=== PATIENT | female | born 1935 | race Caucasian/White ===

== ENCOUNTER 2023-02-27 15:34 | Outpatient (CLI) | payer MEDICARE ==
[2023-02-27 16:09] LABS: BASOPHILS # (AUTO) 0.2 X10'3 (0-0.2); BASOPHILS % (AUTO) 1.5 % (0-1); EOSINOPHILS # (AUTO) 0.2 X10'3 (0-0.9); HEMATOCRIT 26.7 % (35.0-45.0); HEMOGLOBIN 7.9 g/dl (12.0-16.0); MEAN CORPUSCULAR HEMOGLOBIN 25.2 PG (27.0-31.0); MEAN CORPUSCULAR HGB CONC 29.7 g/dL (33.0-36.5); MEAN CORPUSCULAR VOLUME 84.7 FL (78-98); MEAN PLATELET VOLUME 7.7 FL (7.4-10.4); MONOCYTES % (AUTO) 9.6 % (2-12); NEUTROPHILS # (AUTO) 6.7 X10'3 (1.8-7.7); NEUTROPHILS % (AUTO) 66.9 % (42-75); PLATELET COUNT 349 X10'3 (140-440); RED BLOOD COUNT 3.15 X10'6 (4.20-5.60)
[2023-02-27 16:21] LABS: ALANINE AMINOTRANSFERASE 20 U/L (12-78); ALBUMIN 3.3 G/DL (3.4-5.0); ALBUMIN/GLOBULIN RATIO 0.8 (1.1-1.5); ALKALINE PHOSPHATASE 84 IU/L (46-116); ANION GAP 8 (8-16); ASPARTATE AMINO TRANSFERASE 15 U/L (10-37); BILIRUBIN,TOTAL 0.3 MG/DL (0.1-1.0); BLOOD UREA NITROGEN 29 MG/DL (7-18); BUN/CREATININE RATIO 29.9 (10.0-20.0); CALCIUM 8.7 MG/DL (8.5-10.1); CHLORIDE 104 MMOL/L (99-107); CREATININE 0.97 MG/DL (0.40-0.90); GLUCOSE 109 MG/DL (70-104); POTASSIUM 4.8 MMOL/L (3.5-5.1); SODIUM 143 MMOL/L (135-145); TOTAL CARBON DIOXIDE 31.1 MMOL/L (24-32); TOTAL PROTEIN 7.3 G/DL (6.4-8.2); eGFR 54 ML/MIN
[2023-02-27] MEDS ORDERED: iohexol 350MG/ML 100ml bottle IV ONE (16:25)
[2023-02-27 16:28] LABS: PRO BRAIN NATRIURETIC PEPTIDE 1021 PG/ML (0-450)
== END 2023-02-27 23:59 | disposition home or self-care (01) ==
LOC: RAD 15:34
PROVIDERS: ATTEND Internal Medicine Critical Care Medicine
DX: R06.02 Shortness of breath (principal); R09.02 Hypoxemia
CPT/HCPCS: 36415; 71275; 80053; 83880; 84484; 85025; J3490; Q9967

== ENCOUNTER 2023-03-06 11:04 | Outpatient (CLI) | payer MEDICARE ==
[2023-03-06 11:56] LABS: BASOPHILS # (AUTO) 0.1 X10'3 (0-0.2); EOSINOPHILS # (AUTO) 0.1 X10'3 (0-0.9); EOSINOPHILS % (AUTO) 1.5 % (0-6); LYMPHOCYTES # (AUTO) 1.9 X10'3 (1.1-4.8); LYMPHOCYTES % (AUTO) 20.7 % (21-51); MEAN PLATELET VOLUME 7.7 FL (7.4-10.4); MONOCYTES # (AUTO) 0.6 X10'3 (0-0.9); MONOCYTES % (AUTO) 7.2 % (2-12); NEUTROPHILS # (AUTO) 6.3 X10'3 (1.8-7.7); NEUTROPHILS % (AUTO) 69.6 % (42-75); PLATELET COUNT 452 X10'3 (140-440)
[2023-03-06 12:15] LABS: ALANINE AMINOTRANSFERASE 20 U/L (12-78); ALBUMIN 3.4 G/DL (3.4-5.0); ALBUMIN/GLOBULIN RATIO 0.8 (1.1-1.5); ALKALINE PHOSPHATASE 88 IU/L (46-116); ANION GAP 9 (8-16); ASPARTATE AMINO TRANSFERASE 14 U/L (10-37); BILIRUBIN,TOTAL 0.3 MG/DL (0.1-1.0); BLOOD UREA NITROGEN 21 MG/DL (7-18); BUN/CREATININE RATIO 22.3 (10.0-20.0); CALCIUM 9.4 MG/DL (8.5-10.1); CHLORIDE 99 MMOL/L (99-107); CREATININE 0.94 MG/DL (0.40-0.90); FREE T4 (FREE THYROXINE) 1.02 NG/DL (0.73-1.40); GLUCOSE 118 MG/DL (70-104); SODIUM 139 MMOL/L (135-145); THYROID STIMULATING HORMONE 3.06 ulU/ml (0.34-4.50); TOTAL CARBON DIOXIDE 31.3 MMOL/L (24-32); TOTAL PROTEIN 7.6 G/DL (6.4-8.2); eGFR 56 ML/MIN
[2023-03-06 12:52] LABS: HEMATOCRIT 25.9 % (35.0-45.0); HEMOGLOBIN 8.2 g/dl (12.0-16.0); MEAN CORPUSCULAR HGB CONC 31.5 g/dL (33.0-36.5); MEAN CORPUSCULAR VOLUME 79.2 FL (78-98); RED BLOOD COUNT 3.28 X10'6 (4.20-5.60); RED CELL DISTRIBUTION WIDTH 18.1 % (11.5-14.5)
[2023-03-06 13:51] LABS: ANISOCYTOSIS 2+; PLATELET ESTIMATE INCREASED; POIKILOCYTOSIS FEW; POLYCHROMASIA FEW; STOMATOCYTES 2+
[2023-03-08 10:57] LABS: OCCULT BLOOD STOOL NEGATIVE (Neg)
== END 2023-03-06 23:59 | disposition home or self-care (01) ==
LOC: LAB 11:04
PROVIDERS: ATTEND Family Medicine
DX: I12.9 Hypertensive chronic kidney disease with stage 1 through stage 4 chronic kidney disease, or unspecified chronic kidney disease (principal); N18.9 Chronic kidney disease, unspecified; D64.9 Anemia, unspecified; R53.83 Other fatigue
CPT/HCPCS: 36415; 80053; 82272; 82607; 84439; 84443; 85008; 85025; 86885; 86900; 86901; 86920

== ENCOUNTER 2023-03-15 14:37 | Inpatient (IN) | payer MEDICARE ==
[~2023-03-15] VITALS: Ht 157.5 cm; Wt 90.9 kg
[2023-03-15] VITALS (7 sets, daily range): BP systolic 112–133; BP diastolic 42–95; PULSE 80–88; RESP 13–23; TEMP 98.1–98.7; O2SAT 95
[2023-03-15 15:19] LABS: BASOPHILS % (AUTO) 0.4 % (0-1); EOSINOPHILS % (AUTO) 0 % (0-6); HEMATOCRIT 23.5 % (35.0-45.0); LYMPHOCYTES # (AUTO) 1.3 X10'3 (1.1-4.8); LYMPHOCYTES % (AUTO) 15.2 % (21-51); MEAN CORPUSCULAR HEMOGLOBIN 23.8 PG (27.0-31.0); MEAN CORPUSCULAR HGB CONC 29.4 g/dL (33.0-36.5); MEAN PLATELET VOLUME 7.6 FL (7.4-10.4); MONOCYTES # (AUTO) 0.3 X10'3 (0-0.9); MONOCYTES % (AUTO) 3.1 % (2-12); NEUTROPHILS # (AUTO) 6.9 X10'3 (1.8-7.7); NEUTROPHILS % (AUTO) 81.3 % (42-75); PLATELET COUNT 441 X10'3 (140-440); RED CELL DISTRIBUTION WIDTH 19.3 % (11.5-14.5); WHITE BLOOD COUNT 8.5 X10'3 (4.5-11.0)
[2023-03-15 15:25] LABS: HEMOGLOBIN 6.9 g/dl (12.0-16.0)
[2023-03-15 15:35] LABS: ALANINE AMINOTRANSFERASE 17 U/L (12-78); ALBUMIN 3.4 G/DL (3.4-5.0); ALBUMIN/GLOBULIN RATIO 0.9 (1.1-1.5); ALKALINE PHOSPHATASE 88 IU/L (46-116); ANION GAP 6 (8-16); ASPARTATE AMINO TRANSFERASE 11 U/L (10-37); BILIRUBIN,TOTAL 0.2 MG/DL (0.1-1.0); BLOOD UREA NITROGEN 26 MG/DL (7-18); CALCIUM 8.7 MG/DL (8.5-10.1); CHLORIDE 103 MMOL/L (99-107); CREATININE 1.18 MG/DL (0.40-0.90); GLUCOSE 179 MG/DL (70-104); POTASSIUM 4.6 MMOL/L (3.5-5.1); SODIUM 140 MMOL/L (135-145); TOTAL CARBON DIOXIDE 31.2 MMOL/L (24-32); TOTAL PROTEIN 7.1 G/DL (6.4-8.2); eGFR 43 ML/MIN
[2023-03-15 15:43] LABS: PRO BRAIN NATRIURETIC PEPTIDE 1994 PG/ML (0-450)
[2023-03-15] MEDS: ipratropium 0.5 MG/2.5ML nebule IH ONE (15:50)
[2023-03-15] MEDS: normal saline 1000ml 1,000 ML IV SCH ×2 (15:50→18:20)
[2023-03-15] MEDS: acetaminophen 325mg tablet PO ONE (16:00)
[2023-03-15 16:24] LABS: RED BLOOD COUNT 2.97 X10'6 (4.20-5.60); RETICULOCYTE % (AUTO) 3.3 % (0.5-1.5)
[2023-03-15 16:43] LABS: APTT 24 SECONDS (22-32); FIBRINOGEN 405 MG/DL (177-424); PROTHROMBIN TIME 10.4 SECONDS (9.0-12.0)
[2023-03-15 16:51] LABS: FERRITIN 9 NG/ML (8-252)
[2023-03-15 17:03] LABS: % IRON SATURATION 4 % (11-46); IRON 16 UG/DL (49-151); TOTAL IRON BINDING CAPACITY 449 UG/DL (259-388)
[2023-03-15] MEDS ORDERED: mag hydrox/Alum hydrox/simeth 30ml oral suspension PO PRN (17:25)
[2023-03-15] MEDS ORDERED: acetaminophen 650mg rectal suppository RC PRN (17:25)
[2023-03-15] MEDS ORDERED: bisacodyl 10mg suppository rectal RC PRN (17:25)
[2023-03-15] MEDS ORDERED: acetaminophen 325mg tablet PO PRN ×2 (17:25)
[2023-03-15] MEDS ORDERED: ondansetron 4mg rapidly disintigrating tab PO PRN (17:25)
[2023-03-15] MEDS ORDERED: diphenhydrAMINE 25mg capsule PO PRN (17:25)
[2023-03-15] MEDS ORDERED: diphenhydrAMINE 50 mg/ml inj IV PRN (17:25)
[2023-03-15] MEDS ORDERED: morphine 2 MG/ML inj. syringe IV PRN (17:25)
[2023-03-15] MEDS ORDERED: HYDROcodone/acetaminophen 5mg/325mg tablet PO PRN (17:25)
[2023-03-15] MEDS ORDERED: magnesium hydroxide 30ml (MOM) UD suspension PO PRN (17:25)
[2023-03-15] MEDS ORDERED: ondansetron/PF 4mg/2ml inj IV PRN (17:25)
[2023-03-15 17:44] LABS: NUCLEATED RED BLOOD CELLS 2 /100WBC (0-0); TOTAL CELLS COUNTED 100
[2023-03-15 17:45] LABS: ANISOCYTOSIS 2+; HYPOCHROMASIA 2+; PLATELET ESTIMATE INCREASED; POIKILOCYTOSIS 2+; POLYCHROMASIA FEW; STOMATOCYTES 2+
[2023-03-15] MEDS: albuterol 2.5 MG/3 ML nebule NEB ONE (17:47)
[2023-03-15] MEDS: pantoprazole 40 MG vial IV ONE (18:20)
[2023-03-15] MEDS: diphenhydrAMINE 25mg capsule PO ONE (18:20)
[2023-03-15 19:09] LABS: BILIRUBIN,URINE NEGATIVE (Neg); CLARITY,URINE SLIGHTLY CLOUDY (Clear); COLOR,URINE YELLOW (Yellow); GLUCOSE, URINE NEGATIVE (Neg); KETONES,URINE NEGATIVE (Neg); LEUKOCYTE ESTERASE ,URINE NEGATIVE (Neg); NITRITES, URINE NEGATIVE (Neg); OCCULT BLOOD,URINE NEGATIVE (Neg); PROTEIN,URINE NEGATIVE (Neg); UROBILINOGEN,URINE 0.2 E.U/dL (0.2-1.0)
[2023-03-15 19:10] LABS: UA COLLECTION TYPE CLN CATCH MIDSTREAM
[2023-03-15 19:22] LABS: BACTERIA,URINE 4+ /HPF (Neg); MUCUS STRANDS NONE SEEN /LPF (Neg); RBC,URINE NONE SEEN /HPF (0-2); SQUAMOUS EPITHELIAL CELL,UR FEW /LPF (FEW)
[2023-03-15 19:53] LABS: HEMOGLOBIN A1C 5.6 % (4.5-6.2)
[2023-03-15] MEDS: docusate sod 100mg capsule PO SCH (20:00)
[2023-03-15 20:11] LABS: MAGNESIUM 2.5 MG/DL (1.5-2.4); PHOSPHORUS 3.8 MG/DL (2.3-4.5)
[2023-03-15] MEDS ORDERED: VERA120T86 (21:25)
[2023-03-15] MEDS ORDERED: FURO20TA4 PO (21:25)
[2023-03-15] MEDS ORDERED: IRBE150T34 PO (21:25)
[2023-03-15] MEDS ORDERED: POTA-366 PO (21:25)
[2023-03-15] MEDS ORDERED: ROPI3TAB21 PO (21:25)
[2023-03-15] MEDS ORDERED: DORZ10DR10 EACHEYE (21:25)
[2023-03-15] MEDS ORDERED: TIMO5DRO15 EACHEYE (21:25)
[2023-03-15] MEDS ORDERED: NETA2.5D3 (21:28)
[2023-03-15 23:00] LABS: HEMATOCRIT 25.5 % (35.0-45.0); HEMOGLOBIN 7.7 g/dl (12.0-16.0); MEAN CORPUSCULAR HEMOGLOBIN 24.5 PG (27.0-31.0); MEAN CORPUSCULAR HGB CONC 30.1 g/dL (33.0-36.5); MEAN CORPUSCULAR VOLUME 81.4 FL (78-98); MEAN PLATELET VOLUME 8.1 FL (7.4-10.4); PLATELET COUNT 404 X10'3 (140-440); RED BLOOD COUNT 3.13 X10'6 (4.20-5.60); RED CELL DISTRIBUTION WIDTH 18.5 % (11.5-14.5); WHITE BLOOD COUNT 10.1 X10'3 (4.5-11.0)
[2023-03-16] VITALS (13 sets, daily range): BP systolic 131–166; BP diastolic 52–82; PULSE 77–89; RESP 13–27; TEMP 97.2–98.2; O2SAT 94–98
[2023-03-16] MEDS: temazepam 15mg capsule PO PRN (03:54)
[2023-03-16 04:50] LABS: ALANINE AMINOTRANSFERASE 18 U/L (12-78); ALBUMIN 3.1 G/DL (3.4-5.0); ALBUMIN/GLOBULIN RATIO 0.9 (1.1-1.5); ALKALINE PHOSPHATASE 75 IU/L (46-116); ANION GAP 6 (8-16); ASPARTATE AMINO TRANSFERASE 14 U/L (10-37); BILIRUBIN,TOTAL 0.2 MG/DL (0.1-1.0); BLOOD UREA NITROGEN 20 MG/DL (7-18); BUN/CREATININE RATIO 20.4 (10.0-20.0); CALCIUM 8.5 MG/DL (8.5-10.1); CHLORIDE 107 MMOL/L (99-107); CHOL/HDL RATIO 3.1 (0.00-4.99); CHOLESTEROL 129 MG/DL (0-200); CREATININE 0.98 MG/DL (0.40-0.90); GLUCOSE 98 MG/DL (70-104); HDL CHOLESTEROL 42 MG/DL (35-60); LDL CHOLESTEROL 67 MG/DL (50-100); SODIUM 144 MMOL/L (135-145); TOTAL CARBON DIOXIDE 30.7 MMOL/L (24-32); TOTAL PROTEIN 6.6 G/DL (6.4-8.2); TRIGLYCERIDES 101 MG/DL (20-135); eCRCL 33 ML/MIN; eGFR 54 ML/MIN
[2023-03-16 04:56] LABS: BASOPHILS # (AUTO) 0.1 X10'3 (0-0.2); EOSINOPHILS # (AUTO) 0.1 X10'3 (0-0.9); EOSINOPHILS % (AUTO) 0.5 % (0-6); HEMATOCRIT 24.5 % (35.0-45.0); HEMOGLOBIN 7.4 g/dl (12.0-16.0); LYMPHOCYTES # (AUTO) 2.7 X10'3 (1.1-4.8); LYMPHOCYTES % (AUTO) 23.5 % (21-51); MEAN CORPUSCULAR HEMOGLOBIN 24.3 PG (27.0-31.0); MEAN CORPUSCULAR VOLUME 80.8 FL (78-98); MEAN PLATELET VOLUME 7.9 FL (7.4-10.4); MONOCYTES # (AUTO) 0.9 X10'3 (0-0.9); MONOCYTES % (AUTO) 7.9 % (2-12); NEUTROPHILS # (AUTO) 7.7 X10'3 (1.8-7.7); NEUTROPHILS % (AUTO) 67.1 % (42-75); PLATELET COUNT 398 X10'3 (140-440); RED BLOOD COUNT 3.04 X10'6 (4.20-5.60); RED CELL DISTRIBUTION WIDTH 18.4 % (11.5-14.5); WHITE BLOOD COUNT 11.4 X10'3 (4.5-11.0)
[2023-03-16 07:00] LABS: ANISOCYTOSIS 2+; MICROCYTOSIS 1+; PLATELET ESTIMATE NORMAL; POIKILOCYTOSIS FEW; POLYCHROMASIA FEW
[2023-03-16] MEDS: CefTRIAXone/D5W-Rocephin 1gm 50 ML IV SCH (08:31)
[2023-03-16 11:34] LABS: OCCULT BLOOD STOOL POSITIVE (Neg)
[2023-03-16] MEDS: azithromycin/NS 500mg/250ml 250 ML IV SCH (12:06)
[2023-03-16] MEDS: ipratropium/albuterol 3ml nebule NEB PRN (15:49)
[2023-03-17] VITALS (13 sets, daily range): BP systolic 127–153; BP diastolic 56–107; PULSE 80–89; RESP 13–23; TEMP 97.3–98.2; O2SAT 94–96
[2023-03-17 06:55] LABS: BASOPHILS # (AUTO) 0.1 X10'3 (0-0.2); BASOPHILS % (AUTO) 1.1 % (0-1); EOSINOPHILS # (AUTO) 0.3 X10'3 (0-0.9); EOSINOPHILS % (AUTO) 2.7 % (0-6); HEMATOCRIT 28.3 % (35.0-45.0); HEMOGLOBIN 8.5 g/dl (12.0-16.0); LYMPHOCYTES # (AUTO) 1.5 X10'3 (1.1-4.8); LYMPHOCYTES % (AUTO) 13.3 % (21-51); MEAN CORPUSCULAR HEMOGLOBIN 24.7 PG (27.0-31.0); MEAN CORPUSCULAR HGB CONC 29.9 g/dL (33.0-36.5); MEAN CORPUSCULAR VOLUME 82.4 FL (78-98); MEAN PLATELET VOLUME 7.7 FL (7.4-10.4); MONOCYTES % (AUTO) 8.7 % (2-12); NEUTROPHILS # (AUTO) 8.6 X10'3 (1.8-7.7); NEUTROPHILS % (AUTO) 74.2 % (42-75); PLATELET COUNT 376 X10'3 (140-440); RED BLOOD COUNT 3.43 X10'6 (4.20-5.60); RED CELL DISTRIBUTION WIDTH 18.3 % (11.5-14.5); WHITE BLOOD COUNT 11.6 X10'3 (4.5-11.0)
[2023-03-17 07:21] LABS: ALANINE AMINOTRANSFERASE 17 U/L (12-78); ALBUMIN 2.8 G/DL (3.4-5.0); ALBUMIN/GLOBULIN RATIO 0.8 (1.1-1.5); ALKALINE PHOSPHATASE 74 IU/L (46-116); ANION GAP 5 (8-16); ASPARTATE AMINO TRANSFERASE 16 U/L (10-37); BILIRUBIN,TOTAL 0.4 MG/DL (0.1-1.0); BLOOD UREA NITROGEN 11 MG/DL (7-18); BUN/CREATININE RATIO 14.3 (10.0-20.0); CALCIUM 8.3 MG/DL (8.5-10.1); CHLORIDE 107 MMOL/L (99-107); CREATININE 0.77 MG/DL (0.40-0.90); GLUCOSE 93 MG/DL (70-104); SODIUM 144 MMOL/L (135-145); TOTAL CARBON DIOXIDE 31.6 MMOL/L (24-32); TOTAL PROTEIN 6.5 G/DL (6.4-8.2); eCRCL 41 ML/MIN; eGFR 71 ML/MIN
[2023-03-17] MEDS ORDERED: fentaNYL/PF 50MCG/1 ML 2ML syringe ONE (10:56)
[2023-03-17] MEDS ORDERED: MIDAZolam 1 MG/ML 5ML VIAL ONE (10:56)
[2023-03-17] MEDS ORDERED: LIDOcaine Viscous 15ml cup ONE (10:57)
[2023-03-18 00:01] VITALS: PULSE 76; RESP 18; O2SAT 93
[2023-03-18 06:00] VITALS: BP 136/81; PULSE 72; RESP 18; TEMP 98.6; O2SAT 94
[2023-03-18 07:58] LABS: BASOPHILS # (AUTO) 0.1 X10'3 (0-0.2); BASOPHILS % (AUTO) 0.6 % (0-1); EOSINOPHILS # (AUTO) 0.2 X10'3 (0-0.9); EOSINOPHILS % (AUTO) 1.9 % (0-6); HEMATOCRIT 28.2 % (35.0-45.0); HEMOGLOBIN 8.4 g/dl (12.0-16.0); LYMPHOCYTES # (AUTO) 1.8 X10'3 (1.1-4.8); LYMPHOCYTES % (AUTO) 14.4 % (21-51); MEAN CORPUSCULAR HEMOGLOBIN 24.4 PG (27.0-31.0); MEAN CORPUSCULAR HGB CONC 29.7 g/dL (33.0-36.5); MEAN CORPUSCULAR VOLUME 82.2 FL (78-98); MEAN PLATELET VOLUME 7.6 FL (7.4-10.4); MONOCYTES # (AUTO) 1.2 X10'3 (0-0.9); MONOCYTES % (AUTO) 9.7 % (2-12); NEUTROPHILS % (AUTO) 73.4 % (42-75); PLATELET COUNT 347 X10'3 (140-440); RED BLOOD COUNT 3.43 X10'6 (4.20-5.60); RED CELL DISTRIBUTION WIDTH 18.7 % (11.5-14.5); WHITE BLOOD COUNT 12.2 X10'3 (4.5-11.0)
[2023-03-18 08:36] LABS: ALANINE AMINOTRANSFERASE 18 U/L (12-78); ALBUMIN/GLOBULIN RATIO 0.8 (1.1-1.5); ALKALINE PHOSPHATASE 78 IU/L (46-116); ANION GAP 7 (8-16); ASPARTATE AMINO TRANSFERASE 12 U/L (10-37); BILIRUBIN,TOTAL 0.4 MG/DL (0.1-1.0); BLOOD UREA NITROGEN 7 MG/DL (7-18); CALCIUM 8.5 MG/DL (8.5-10.1); CHLORIDE 106 MMOL/L (99-107); CREATININE 0.78 MG/DL (0.40-0.90); GLUCOSE 102 MG/DL (70-104); POTASSIUM 3.6 MMOL/L (3.5-5.1); SODIUM 142 MMOL/L (135-145); TOTAL PROTEIN 6.6 G/DL (6.4-8.2); eCRCL 41 ML/MIN; eGFR 70 ML/MIN
[2023-03-18 08:38] VITALS: PULSE 84; RESP 18; O2SAT 95
[2023-03-18 11:00] VITALS: BP 141/66; PULSE 78; RESP 18; TEMP 97.9; O2SAT 95
[2023-03-18] MEDS ORDERED: DEXL30CA4 PO (13:37)
[2023-03-18] MEDS ORDERED: LEVO-65 PO (13:37)
[2023-03-19 13:37] LABS: TRANSFERRIN 407 mg/dL (149-313)
== END 2023-03-18 14:00 | disposition home or self-care (01) | DRG 377 ==
LOC: ER 14:38 → ED HOLD 17:31 → EDBEDREQ 03-16 00:27 → PCU 3S 03-16 08:57
PROVIDERS: ADMIT Family Medicine; ATTEND Family Medicine
PROC: 30233N1 Transfusion of Nonautologous Red Blood Cells into Peripheral Vein, Percutaneous Approach (ICD-10-PCS; 2023-03-15)
PROC: 0DJ08ZZ Inspection of Upper Intestinal Tract, Via Natural or Artificial Opening Endoscopic (ICD-10-PCS; principal; 2023-03-17)
DX: K29.91 Gastroduodenitis, unspecified, with bleeding (principal); I50.33 Acute on chronic diastolic (congestive) heart failure; J96.21 Acute and chronic respiratory failure with hypoxia; J15.8 Pneumonia due to other specified bacteria; N39.0 Urinary tract infection, site not specified; N17.9 Acute kidney failure, unspecified; I13.0 Hypertensive heart and chronic kidney disease with heart failure and stage 1 through stage 4 chronic kidney disease, or unspecified chronic kidney disease; J44.0 Chronic obstructive pulmonary disease with (acute) lower respiratory infection; K22.11 Ulcer of esophagus with bleeding; D64.9 Anemia, unspecified; N18.9 Chronic kidney disease, unspecified; E66.9 Obesity, unspecified; Z68.36 Body mass index [BMI] 36.0-36.9, adult; E86.1 Hypovolemia; Z99.81 Dependence on supplemental oxygen; Z87.891 Personal history of nicotine dependence
CPT/HCPCS: 36415; 36430; 43235; 71045; 71046; 71250; 74176; 80053; 80061; 81001; 82272; 82607; 82728; 83036; 83540; 83550; 83605; 83735; 83880; 84100; 84466; 84484; 85007; 85008; 85025; 85027; 85045; 85384; 85610; 85730; 86885; 86900; 86901; 86920; 87040; 87077; 87081; 87088; 87186; 93005; 93306; 94640; 94760; 99152; 99285; A4620; C9113; G0378; J0456; J0696; J2250; J3010; J7030; J7040; J7050; P9016; Q0163

== ENCOUNTER 2023-09-11 09:55 | Emergency (ER) | payer MEDICARE ==
[~2023-09-11] VITALS: Ht 157.5 cm; Wt 82.2 kg
[~2023-09-11 09:55] MED LIST: DEXL30CA9 PO; DORZ10DR10 EACHEYE; IRBE150T34 PO; NETA2.5D3; ROPI3TAB21 PO; TIMO5DRO15 EACHEYE
[2023-09-11 10:50] LABS: BASOPHILS # (AUTO) 0.1 X10'3 (0-0.2); BASOPHILS % (AUTO) 1.2 % (0-1); EOSINOPHILS # (AUTO) 0.3 X10'3 (0-0.9); EOSINOPHILS % (AUTO) 2.8 % (0-6); LYMPHOCYTES # (AUTO) 1.5 X10'3 (1.1-4.8); MEAN PLATELET VOLUME 8.1 FL (7.4-10.4); MONOCYTES # (AUTO) 0.7 X10'3 (0-0.9); MONOCYTES % (AUTO) 7.7 % (2-12); NEUTROPHILS % (AUTO) 72.3 % (42-75); PLATELET COUNT 444 X10'3 (140-440); RED BLOOD COUNT 2.45 X10'6 (4.20-5.60); RED CELL DISTRIBUTION WIDTH 21.3 % (11.5-14.5); WHITE BLOOD COUNT 9.7 X10'3 (4.5-11.0)
[2023-09-11 10:58] LABS: APTT 24 SECONDS (22-32); PROTHROMBIN TIME 10.9 SECONDS (9.0-12.0)
[2023-09-11 11:00] LABS: ALANINE AMINOTRANSFERASE 17 U/L (12-78); ALBUMIN 3.2 G/DL (3.4-5.0); ALBUMIN/GLOBULIN RATIO 0.8 (1.1-1.5); ALKALINE PHOSPHATASE 99 IU/L (46-116); AMYLASE 52 U/L (25-115); ANION GAP 9 (8-16); ASPARTATE AMINO TRANSFERASE 14 U/L (10-37); BILIRUBIN,TOTAL 0.3 MG/DL (0.1-1.0); BLOOD UREA NITROGEN 18 MG/DL (7-18); BUN/CREATININE RATIO 19.4 (10.0-20.0); CALCIUM 8.9 MG/DL (8.5-10.1); CHLORIDE 106 MMOL/L (99-107); CREATININE 0.93 MG/DL (0.40-0.90); GLUCOSE 112 MG/DL (70-104); LIPASE 69 U/L (16-77); POTASSIUM 4.1 MMOL/L (3.5-5.1); SODIUM 141 MMOL/L (135-145); TOTAL CARBON DIOXIDE 26.1 MMOL/L (24-32); TOTAL PROTEIN 7.1 G/DL (6.4-8.2); eCRCL 34 ML/MIN; eGFR 57 ML/MIN
[2023-09-11 11:13] LABS: HEMOGLOBIN 6.6 g/dl (12.0-16.0)
[2023-09-11 11:14] LABS: HEMATOCRIT 21.8 % (35.0-45.0); MEAN CORPUSCULAR HEMOGLOBIN 26.7 PG (27.0-31.0); MEAN CORPUSCULAR HGB CONC 30.3 g/dL (33.0-36.5); MEAN CORPUSCULAR VOLUME 88.2 FL (78-98)
[2023-09-11 12:16] VITALS: BP 145/69; PULSE 78; RESP 18; TEMP 98.4
[2023-09-11 12:16] LABS: BILIRUBIN,URINE NEGATIVE (Neg); CLARITY,URINE CLEAR (Clear); COLOR,URINE YELLOW (Yellow); GLUCOSE, URINE NEGATIVE (Neg); KETONES,URINE NEGATIVE (Neg); LEUKOCYTE ESTERASE ,URINE TRACE (Neg); NITRITES, URINE NEGATIVE (Neg); OCCULT BLOOD,URINE NEGATIVE (Neg); PROTEIN,URINE NEGATIVE (Neg); UROBILINOGEN,URINE 0.2 E.U/dL (0.2-1.0)
[2023-09-11 12:27] LABS: UA COLLECTION TYPE NON-SPECIFIED
[2023-09-11 12:28] LABS: BACTERIA,URINE 2+ /HPF (Neg); HYALINE CASTS 0-3 /LPF (NEGATIVE); MUCUS STRANDS FEW /LPF (Neg); RBC,URINE 0-2 /HPF (0-2); SQUAMOUS EPITHELIAL CELL,UR MODERATE /LPF (FEW); WBC,URINE 0-4 /HPF (0-4)
[2023-09-11 12:34] VITALS: BP 112/67; PULSE 85; RESP 17; TEMP 98.4
[2023-09-11] MEDS ORDERED: CEPH-585 PO (12:43)
[2023-09-11] MEDS: cephalexin 250mg capsule PO ONE (12:59)
[2023-09-11 13:12] VITALS: O2SAT 95
[2023-09-11 13:34] VITALS: BP 132/104; PULSE 81; RESP 16; TEMP 98.4
== END 2023-09-11 14:09 | disposition home or self-care (01) ==
LOC: ER 09:56
DX: D64.9 Anemia, unspecified (principal); N39.0 Urinary tract infection, site not specified; R06.02 Shortness of breath; Z79.2 Long term (current) use of antibiotics; Z79.899 Other long term (current) drug therapy
CPT/HCPCS: 36415; 36430; 80053; 81001; 82150; 83690; 85025; 85610; 85730; 86885; 86900; 86901; 86920; 87088; 99285; P9016

== ENCOUNTER 2024-03-13 08:00 | Day surgery (SDC) | payer MEDICARE ==
[~2024-03-13] VITALS: Ht 154.9 cm; Wt 168.0 kg
[~2024-03-13 08:00] MED LIST changes: -DEXL30CA9 PO; -IRBE150T34 PO; +IRON INFUSIONS; +PANT40TA54; +PRENATAL VITAMINS PO; -TIMO5DRO15 EACHEYE
[2024-03-13 08:54] VITALS: BP 137/60; PULSE 62; RESP 14
[2024-03-13] MEDS ORDERED: propofol 10mg/ml 20ml vial IV ONE (09:05)
[2024-03-13 09:42] VITALS: BP 101/50; PULSE 55; RESP 14; O2SAT 100
[2024-03-13 09:50] VITALS: BP 114/56; PULSE 57; RESP 19; O2SAT 100
[2024-03-13 10:00] VITALS: BP 119/61; PULSE 55; RESP 18; O2SAT 93
[2024-03-13 10:10] VITALS: BP 119/62; PULSE 57; RESP 15; O2SAT 93
[2024-03-13 10:20] VITALS: BP 135/63; PULSE 56; RESP 12; O2SAT 92
== END 2024-03-13 10:40 | disposition home or self-care (01) ==
LOC: GI LAB 08:00
PROVIDERS: ATTEND Internal Medicine Gastroenterology
DX: D50.9 Iron deficiency anemia, unspecified (principal); D12.0 Benign neoplasm of cecum; K57.30 Diverticulosis of large intestine without perforation or abscess without bleeding; C50.919 Malignant neoplasm of unspecified site of unspecified female breast; C78.89 Secondary malignant neoplasm of other digestive organs; K44.9 Diaphragmatic hernia without obstruction or gangrene; K31.7 Polyp of stomach and duodenum; D17.79 Benign lipomatous neoplasm of other sites; K21.9 Gastro-esophageal reflux disease without esophagitis; I10 Essential (primary) hypertension; Z87.891 Personal history of nicotine dependence; Z96.611 Presence of right artificial shoulder joint; Z90.13 Acquired absence of bilateral breasts and nipples; Z98.890 Other specified postprocedural states; Z79.899 Other long term (current) drug therapy
CPT/HCPCS: 43239; 45385; 88305; 88341; 88342; 88360; J2704; J7030; Z7512; 43251; A4620; C1889